=== PATIENT | female | born 1970 | race Caucasian/White ===

== ENCOUNTER 2021-02-13 09:00 | Emergency (ER) | payer SELFPAY ==
[~2021-02-13] VITALS: Ht 157.5 cm; Wt 86.2 kg
[2021-02-13 09:08] VITALS: BP 159/95
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
[2021-02-13] MEDS ORDERED: METH-649 GT (09:39)
[2021-02-13] MEDS ORDERED: IBUP-1957 PO (09:39)
[2021-02-13] MEDS ORDERED: METH-807 PO (09:54)
== END 2021-02-13 11:01 | disposition home or self-care (01) ==
LOC: ER 09:03
DX: S29.012A Strain of muscle and tendon of back wall of thorax, initial encounter (principal); V73.6XXA Passenger on bus injured in collision with car, pick-up truck or van in traffic accident, initial encounter; Y93.89 Activity, other specified; Y92.413 State road as the place of occurrence of the external cause; Y99.8 Other external cause status